=== PATIENT | male | born 1970 | race Caucasian/White ===

== ENCOUNTER 2019-12-06 11:34 | Emergency (ER) | payer SELFPAY ==
[~2019-12-06] VITALS: Ht 162.6 cm; Wt 68.0 kg
[~2019-12-06 11:34] MED LIST: NAPR-683 PO
[2019-12-06 12:27] VITALS: BP 145/84
--- NOTE | 2019-12-06 13:44 | RAD ---
Two-view right scapula HISTORY: Pain after being hit by baseball AP Y views right scapula The visualized osseous structures appear normal. This is a difficult area to evaluate. IMPRESSION: No acute findings. End impression 3 view left elbow: AP lateral oblique views The visualized osseous structures appear normal. IMPRESSION: No acute findings. Electronically signed by: Sebastien Tan III, MD (12/06/2019 1:40 PM) [id number]
--- NOTE | 2019-12-06 13:48 | PHYS DOC ---
Past Medical History Past Medical History: Anxiety, Arthritis Past Surgical History: Other Additional Past Surgical Histo: LT HAND Smoking Status: Current Every Day Smoker Alcohol Use: Occasionally Drug Use: None General Adult EDM: Chief Complaint: UPPER EXTREMITY PAIN HPI: HPI: Patient is a 49 year old male presented to the ER today for evaluation of left elbow pain and right scapular pain. Patient said he was playing baseball with his friends in the park yesterday. He was hit on the left elbow and right scapular area by the baseball bat by [employer]. Patient did not seek medical attention until today when he woke up, having pain with movement. Patient denie d any shortness of air. No numbness or weakness in upper extremities. Review of Systems: Review of Systems: Constitutional: Denies fever or chills. [] Eyes: Denies change in visual acuity. [] HENT: Denies nasal congestion or sore throat. [] Respiratory: Denies cough or shortness of breath. [] Cardiovascular: Denies chest pain or edema. [] GI: Denies abdominal pain, nausea, vomiting, bloody stools or diarrhea. [] : Denies dysuria. [] Musculoskeletal: Denies back pain, positive for left elbow and right scapular pain. Integument: Denies rash. [] Neurologic: Denies headache, focal weakness or sensory changes. [] Endocrine: Denies polyuria or polydipsia. [] Lymphatic: Denies swollen glands. [] Psychiatric: Denies depression or anxiety. [] Heart Score: Risk Factors: Risk Factors: DM, Current or recent (<one month) smoker, HTN, HLP, family history of CAD, obesity. Risk Scores: Score 0 - 3: 2.5% MACE over next 6 weeks - Discharge Home Score 4 - 6: 20.3% MACE over next 6 weeks - Admit for Clinical Observation Score 7 - 10: 72.7% MACE over next 6 weeks - Early Invasive Strategies Allergies: Allergies: Allergies Coded Allergies Type Severity Reaction Last Updated Verified Penicillins Allergy Intermediate Hives 08/30/13 Yes aspirin Adverse Reaction Mild Nausea 09/01/15 Yes Physical Exam: PE: Constitutional: Well developed, well nourished, no acute distress, non-toxic appearance. [] HENT: Normocephalic, atraumatic, bilateral external ears normal, oropharynx moist, no oral exudates, nose normal. [] Eyes: PERRLA, EOMI, conjunctiva normal, no discharge. [] Neck: Normal range of motion, no tenderness, supple, no stridor. [] Cardiovascular:Heart rate regular rhythm, no murmur [] Lungs & Thorax: Bilateral breath sounds clear to auscultation [] Abdomen: Bowel sounds normal, soft, no tenderness, no masses, no pulsatile masses. [] Skin: Warm, dry, no erythema, no rash. [] Back: No tenderness, no CVA tenderness. [] Extremities:There is full range of motion of left elbow, there is minimal swelling, tender to palpation, no deformity noted, there is tenderness to palpation on right scapular area, no crepitus. Neurologic: Alert and oriented X 3, normal motor function, normal sensory function, no focal deficits noted. [] Psychologic: Affect normal, judgement normal, mood normal. [] Current Patient Data: Vital Signs: Vital Signs Date Time Temp Pulse Resp B/P (MAP) Pulse Ox O2 Delivery O2 Flow Rate FiO2 12/06/19 12:27 97.9 95 16 145/84 (104) 100 Room Air 97.9 EKG: EKG: [] Radiology/Procedures: Radiology/Procedures: [][facility] [address] [place], [place] [id number] IMAGING REPORT Signed PATIENT: MUSA GROSSMAN ACCOUNT: [id number] : 1970 LOCATION: ER AGE: 49 SEX: M EXAM STATUS: REG ER ORD. PHYSICIAN: COOPER THOMPSON DO REASON: PAIN POST BEING HIT WITH BASEBALL BAT YESTERDAY PROCEDURE: SCAPULA RIGHT Two-view right scapula HISTORY: Pain after being hit by baseball AP Y views right scapula The visualized osseous structures appear normal. This is a difficult area to evaluate. IMPRESSION: No acute findings. End impression 3 view left elbow: AP lateral oblique views The visualized osseous structures appear normal. IMPRESSION: No acute findings. Electronically signed by: Micaela Duarte III, MD (12/06/2019 1:40 PM) [id number] DICTATED and SIGNED BY: MICAELA DUARTE III, MD DATE: 12/06/19 1340 Course & Med Decision Making: Course & Med Decision Making Pertinent Labs and Imaging studies reviewed. (See chart for details) [] Jeanentte Disclaimer: Jeannette Disclaimer: This electronic medical record was generated, in whole or in part, using a voice recognition dictation system. Departure Departure Impression: Primary Impression: Contusion of elbow, left Additional Impression: Contusion of right scapula Disposition: HOME, SELF-CARE Condition: STABLE Referrals: NO PCP (PCP) follow up with your doctor as needed Patient Instructions: Elbow Contusion COOPER THOMPSON DO December 06, 2019 13:48
== END 2019-12-06 13:59 | disposition home or self-care (01) ==
LOC: ER 11:34
DX: S50.01XA Contusion of right elbow, initial encounter (principal); S40.011A Contusion of right shoulder, initial encounter; F41.9 Anxiety disorder, unspecified; M19.90 Unspecified osteoarthritis, unspecified site; F17.200 Nicotine dependence, unspecified, uncomplicated; Z98.890 Other specified postprocedural states; Z88.0 Allergy status to penicillin; Z88.6 Allergy status to analgesic agent; Y29.XXXA Contact with blunt object, undetermined intent, initial encounter; Y93.67 Activity, basketball; Y92.830 Public park as the place of occurrence of the external cause; Y99.8 Other external cause status
CPT/HCPCS: 73010; 73080; 99284